=== PATIENT | female | born 1960 | race Caucasian/White ===

== ENCOUNTER 2022-01-02 07:01 | Day surgery (SDC) | payer BC ==
--- NOTE | 2021-12-31 10:50 | RAD REPORT ---
EXAM DESCRIPTION: RAD - Chest Pa And Lat (2 Views) - 12/31/2021 10:35 am CLINICAL HISTORY: pre op pending colonoscopy COMPARISON: Two view chest 03/24/2017 TECHNIQUE: Frontal and lateral views of the chest were obtained. FINDINGS: The lungs are clear. Interstitial pattern matches comparison. Heart size is normal and ce ntral vasculature is within normal limits. No pleural effusion or pneumothorax seen. No acute bony finding noted. No aortic abnormality. IMPRESSION: No acute cardiopulmonary process. No significant change from comparison study.
[2021-12-31 11:23] LABS: Absolute Lymphocytes (CBC) 1.5 K/uL (0.7-4.9); Hematocrit 40.1 % (36.0-45.0); Lymphocytes % 20.8 % (15.3-44.8); MPV 8.7 fL (7.6-11.3); RBC Red Blood Cell Count 4.32 M/uL (3.86-4.86)
[2021-12-31 11:43] LABS: Potassium 3.8 mmol/L (3.5-5.1)
[2022-01-02] MEDS ORDERED: Ringers Lactate 1,000 ML IV ONE (07:20)
[2022-01-02] MEDS ORDERED: propofoL 200 MG/20 ML VIAL IV ONE ×3 (09:00→09:34)
[2022-01-02] MEDS ORDERED: LIDOCAINE 1% MPF 5 ML VIAL ONE (09:01)
[2022-01-02] MEDS ORDERED: GLYCOPYRROLATE 0.2 MG/ML SYR ONE (09:44)
--- NOTE | 2022-01-02 09:55 | ENDO RPT ---
[address], [address] COLONOSCOPY PROCEDURE REPORT EXAM DATE: 01/02/2022 PATIENT NAME: Rocio Delgado MR #: [id number] BIRTHDATE: 1960 ATTENDING: Daniel Ortiz M.D. STATUS: outpatient [employer]: INDICATIONS: The patient is a 61 yr old Female here for a colonoscopy due to colon cancer screening PROCEDURE PERFORMED: Colonoscopy MEDICATIONS: Per Anesthesia. ESTIMATED BLOOD LOSS: None CONSENT: The patient understands the risks and benefits of the procedure and understands that these risks include, but are not limited to: sedation, allergic reaction, infection, perforation and/or bleeding. Alternative means of evaluation and treatment include, among others: physical exam, x-rays, and/or surgical intervention. The patient elects to proceed with this endoscopic procedure. DESCRIPTION OF PROCEDURE: During intra-op preparation period all mechanical medical equipment was checked for proper function. Hand hygiene and appropriate measures for infection prevention was taken. Procedure, possible complications, alternatives including, but not limited to possibility of bleeding, perforation, tear, infection, sepsis, need for surgery, need for blood transfusion, were explained to the patient. After the risks, benefits and alternatives of the procedure were thoroughly explained, Informed consent was verified, confirmed and timeout was successfully executed by the treatment team. The patient was placed in the left lateral position. A digital rectal exam was performed and revealed no abnormalities of the rectum. After appropriate level of anesthesia, the scope was passed. The EC-[id number] ([id number]) endoscope was introduced through the anus and advanced to the cecum, which was identified by the ileocecal valve. The quality of the prep was good. The instrument was then slowly withdrawn as the colon was fully examined. Scope withdrawal time was 29 minutes. COLON FINDINGS: Small internal hemorrhoids were found. Retroflexed views revealed no abnormalities. The scope was then completely withdrawn from the patient and the procedure terminated. ADVERSE EVENTS: There were no complications. IMPRESSIONS: Small internal hemorrhoids RECOMMENDATIONS: 1. fiber rich diet 2. follow-up: office 1 week(s) 3. increase dietary water RECALL: Return in 10 year(s) for Colonoscopy. Daniel Ortiz M.D. eSigned: Daniel Ortiz M.D. 01/02/2022 9:55 AM cc: Christianne Lindsay M.D. CPT CODES: ICD9 CODES: PATIENT NAME: Danny Rocio KennyMayela MR#: [id number]
[2022-01-02 12:57] VITALS: BP 124/99; TEMP 97.5; O2SAT 100
== END 2022-01-02 10:30 | disposition home or self-care (01) ==
LOC: OR 07:01
PROVIDERS: ATTEND Surgery
PROC: 0DJD8ZZ Inspection of Lower Intestinal Tract, Via Natural or Artificial Opening Endoscopic (ICD-10-PCS; principal; 2022-01-02 08:30)
DX: K62.5 Hemorrhage of anus and rectum (principal); K64.8 Other hemorrhoids; L29.0 Pruritus ani; Z20.822 Contact with and (suspected) exposure to COVID-19
CPT/HCPCS: 93005; 85025; 80048; 36415; 71046; 45378; U0003; J2704 ×2; J7120